=== PATIENT | female | born 1950 | race Caucasian/White ===

== ENCOUNTER 2024-10-12 12:55 | Emergency (ER) | payer OTHER, SELFPAY ==
--- NOTE | 2024-10-12 13:16 | ED.GENMED ---
ED Provider Triage
<Ashutosh Paniagua PA-C - Last Filed: 10/12/24 13:19>
-
Patient seen by provider in Triage?: Seen in Triage
Attestation: A medical screening examination has been initiated by a qualified medical provider. Based on the assessment performed at this time, it has been determined that an emergent medical condition may exist and the patient has been informed
that further medical evaluation and possible additional diagnostic testing may be needed.
HPI: 74-year-old female presenting to the emergency department for evaluation of left-sided chest discomfort and paresthesia to the left arm that started around 7 AM. Patient currently in rehab due to a recently fractured right shoulder. Patient
currently chest pain-free. Mildly hypertensive in triage but otherwise stable. Cardiac workup initiated.
GENERAL: Alert , in no apparent distress
EYE: No visual abnormalities.
NECK: Trachea midline
ENT: No visible abnormalities.
LUNGS: No acute respiratory distress
NEUROLOGICAL: Alert and oriented
SKIN: Skin intact. No visible changes.
MUSCULOSKELETAL: Moving extremities normally
PSYCH: Normal and appropriate interaction.
This is a medical evaluation conducted in person to initiate diagnostic evaluation and provide initial therapeutics. Please see further documentation by the treating clinician.
History of Present Illness
<Ashutosh Paniagua PA-C - Last Filed: 10/12/24 13:19>
General
Chief Complaint: Chest Pain
Time Seen by Provider: 10/12/24 20:37
<Stephanie Mcdonald NP - Last Filed: 10/12/24 23:46>
General
Source: patient
Exam Limitations: none
Nursing documentation reviewed up to this point in time: agreed with
History of Present Illness
History of Present Illness:
Patient to ED for eval of left sided chest pain. SHe is currently at a rehab after falling and breaking her right humeral head 2 weeks ago. States this AM she developed sharp left sided chest pain, and tingling to her left shoulder. No associated
n/v/diaphoresis. No SOB. No aggravating or alleviating factors. Pain resolved within a few minutes. Advised by staff to come to ED for eval. Brought to ED via EMS. No further episodes of chest pain
Past History
<Stephanie Mcdonald NP - Last Filed: 10/12/24 23:46>
Past History
ED Past Medical History: GERD, HTN and Hypercholesterolemia
Social History
Tobacco: Former smoker (quit x 3 years)
Review of Systems
<Stephanie Mcdonald WELT WHEELER - Last Filed: 10/12/24 23:46>
Review of Systems
Allergies reviewed?: Yes
All Other Systems: ROS reviewed and negative except as documented in HPI and ROS
Constitutional: Reports no symptoms
EENT: Reports no symptoms
Respiratory: Reports no symptoms
Cardiac: Reports chest pain
ABD/GI: Reports no symptoms
Musculoskeletal: Reports joint pain (fx right humeral head s/p fall 2 weeks ago)
Skin: Reports no symptoms
Neurological: Reports no symptoms
Psychiatric: Reports no symptoms
Phy Exam
<Stephanie Mcdonald NP - Last Filed: 10/12/24 23:46>
General Physical Exam
General Presentation: well appearing and no apparent distress
General age: appears stated age
General Skin: warm and dry
General Habitus: normal
General Mental: alert
Cardiovascular Exam
Cardiovascular Exam: regular rate/rhythm and no edema
Pulmonary Exam
Pulmonary Exam: lungs clear, no respiratory distress and chest non tender
Musculoskeletal Exam
Musculoskeletal Exam: neuro vasc intact and other (RUE in shoulder immobilizer. Neurovasc. intact)
Skin Exam
Skin Exam: normal color, warm/dry and no rash
Psychiatric Exam
Psychiatric Exam: normal mood/affect
Scores
<Stephanie Mcdonald NP - Last Filed: 10/12/24 23:46>
Heart Score for Chest Pain Patients
STEMI patient?: No
History: Slightly or Non-Suspicious
ECG: Normal
Age: >/= 65 years
Risk Factors: >/= 3 Risk Factors or History of CAD
Troponin: </= Normal Limit
Heart Score for Chest Pain Patients: 4
Heart Score Risk: 20.3% MACE over next 6 weeks
<Thomas Colvin DO - Last Filed: 10/13/24 03:42>
Heart Score for Chest Pain Patients
Heart Score for Chest Pain Patients: 4
Heart Score Risk: 20.3% MACE over next 6 weeks
Course
<Ashutsoh Paniagua PA-C - Last Filed: 10/12/24 13:19>
Orders/Labs/Results
Orders:
Orders
10/12/24 12:56
ECG [Electrocardiogram (*1)] Urgent
Reason for Study: Chest Pain
10/12/24 12:57
EKG- Treatment ONCE
10/12/24 13:25
Complete Blood Count/With Diff Urgent
Comprehensive Metabolic Panel Urgent
Troponin I Urgent
10/12/24 19:12
Troponin I Urgent
10/12/24 20:51
CT Chest PE Study Urgent
Comment:
Reason For Exam: Left chest pain, hypoxemia
Abnormal Lab Results
10/12/24
13:25
RBC 4.13 L 10^6/uL
(4.20-5.40)
MCH 31.2 H pg
(27.0-31.0)
Absolute Lymphs (auto) 1.0 L 10^3/uL
(1.2-3.4)
Lymphocytes % 18.3 L %
(20.5-51.1)
Sodium 133 L mmol/L
(135-145)
Chloride 97 L mmol/L
(98-107)
Glucose 105 H mg/dl
(70-99)
10/12/24 13:25
10/12/24 13:25
Vital Signs
Initial and Last Documented VS:
Initial Vital Signs
Temp Pulse Resp BP Pulse Ox
98.7 F 86 18 135/100 94
10/12/24 13:17 10/12/24 13:17 10/12/24 13:17 10/12/24 13:17 10/12/24 13:17
Last Documented Vital Signs
Temp Pulse Resp BP Pulse Ox
98.8 F 83 20 134/98 91
10/12/24 19:15 10/13/24 00:05 10/13/24 00:05 10/13/24 00:15 10/13/24 00:00
<Stephanie Mcdonald NP - Last Filed: 10/12/24 23:46>
Orders/Labs/Results
Orders:
Orders
10/12/24 12:56
ECG [Electrocardiogram (*1)] Urgent
Reason for Study: Chest Pain
10/12/24 12:57
EKG- Treatment ONCE
10/12/24 13:25
Complete Blood Count/With Diff Urgent
Comprehensive Metabolic Panel Urgent
Troponin I Urgent
10/12/24 19:12
Troponin I Urgent
10/12/24 20:51
CT Chest PE Study Urgent
Comment:
Reason For Exam: Left chest pain, hypoxemia
Abnormal Lab Results
10/12/24
13:25
RBC 4.13 L 10^6/uL
(4.20-5.40)
MCH 31.2 H pg
(27.0-31.0)
Absolute Lymphs (auto) 1.0 L 10^3/uL
(1.2-3.4)
Lymphocytes % 18.3 L %
(20.5-51.1)
Sodium 133 L mmol/L
(135-145)
Chloride 97 L mmol/L
(98-107)
Glucose 105 H mg/dl
(70-99)
10/12/24 13:25
10/12/24 13:25
Vital Signs
Initial and Last Documented VS:
Initial Vital Signs
Temp Pulse Resp BP Pulse Ox
98.7 F 86 18 135/100 94
10/12/24 13:17 10/12/24 13:17 10/12/24 13:17 10/12/24 13:17 10/12/24 13:17
Last Documented Vital Signs
Temp Pulse Resp BP Pulse Ox
98.8 F 83 20 134/98 91
10/12/24 19:15 10/13/24 00:05 10/13/24 00:05 10/13/24 00:15 10/13/24 00:00
<Thomas Colvin, DO - Last Filed: 10/13/24 03:42>
Orders/Labs/Results
Orders:
Orders
10/12/24 12:56
ECG [Electrocardiogram (*1)] Urgent
Reason for Study: Chest Pain
10/12/24 12:57
EKG- Treatment ONCE
10/12/24 13:25
Complete Blood Count/With Diff Urgent
Comprehensive Metabolic Panel Urgent
Troponin I Urgent
10/12/24 19:12
Troponin I Urgent
10/12/24 20:51
CT Chest PE Study Urgent
Comment:
Reason For Exam: Left chest pain, hypoxemia
Abnormal Lab Results
10/12/24
13:25
RBC 4.13 L 10^6/uL
(4.20-5.40)
MCH 31.2 H pg
(27.0-31.0)
Absolute Lymphs (auto) 1.0 L 10^3/uL
(1.2-3.4)
Lymphocytes % 18.3 L %
(20.5-51.1)
Sodium 133 L mmol/L
(135-145)
Chloride 97 L mmol/L
(98-107)
Glucose 105 H mg/dl
(70-99)
10/12/24 13:25
10/12/24 13:25
Vital Signs
Initial and Last Documented VS:
Initial Vital Signs
Temp Pulse Resp BP Pulse Ox
98.7 F 86 18 135/100 94
10/12/24 13:17 10/12/24 13:17 10/12/24 13:17 10/12/24 13:17 10/12/24 13:17
Last Documented Vital Signs
Temp Pulse Resp BP Pulse Ox
98.8 F 83 20 134/98 91
10/12/24 19:15 10/13/24 00:05 10/13/24 00:05 10/13/24 00:15 10/13/24 00:00
<Stephanie Mcdonald NP - Last Filed: 10/12/24 23:46>
*Radiology
Radiology exam reviewed: radiology read reviewed
*Pulse Oximetry
Patient hypoxic: no
*Critical Care Note
Total Time (30-74mins, 75-104mins- exclusive of procedures): Not Applicable
<Stephanie Mcdonald NP - Last Filed: 10/12/24 23:46>
Update Note
Update Note:
Patient to ED s/p chest pain episode this AM. Resolved on own prior to arrival in ED. SHe has remained asymptomatic. Labs, EKG reviewed. Pulse ox holding at 92-93 RA. She denies any SOB. No known history of lung disease. Quit smoking 3 years
ago. Denies cough. Chest CT obtained to r/o PE. Report findings discussed with Dr. Lopez. Reviewed findings of CT wtih pt. NO evidence of PE. Mildly dilated thoracic aorta. Fatty density right margin of left atrium that surrounds SVC and
narrows the caliber of the SVC - fatty infiltrate vs lipoma. SHe follows with hydrogen treater Dr. Palacio from [place] and will call in the AM to schedule a follow up appt. SHe is discharged back to rehab tonight. Given insstructions on s/s to
return to ED and she is agreeable to plan.
ED Attending Note
<Ashutosh Paniagua PA-C - Last Filed: 10/12/24 13:19>
-
Portions of this chart may have been created with voice recognition software.� Occasional wrong word or��sound alike� substitutions may have occurred due to the inherent limitations of voice recognition software.
Discharge Plan
Departure
Patient Disposition: Home (Routine Discharge)
Date of Disposition: 10/12/24
Time of Disposition: 23:29
Patient with high blood pressure during this ER visit?: No
Condition: Good
Covid-19: Not Applicable
Discharge Problem:
Chest pain
Instructions: Chest Pain NON-[facility] Welfare Specialist Follow Up
Referrals:
Ashish Yoon MD [Family Provider] -
Activity Restrictions/Additional Instructions:
Call your cardiologists in the AM to schedule a follow up appointment. Return to the emergency department immediately for any return of/changes in/worsening of your symptoms.
Interventions
Interventions:
*Risk Screen - Suicide Last Done: 10/12/24 13:17
*General Assessment Last Done: 10/12/24 13:17
*Neglect/Abuse Screening Last Done: 10/12/24 13:17
ED- Fall Risk Assessment Last Done: 10/12/24 20:16
*ED COVID-19 Vaccine History Last Done: 10/12/24 13:17
*Nursing Disposition Last Done: 10/13/24 00:31
ED- Cardiac Assessment Last Done: 10/12/24 20:16
Discharge Date and Time
Discharge Date/Time: 10/13/24 00:32
Print Language: PAKISTANI
[2024-10-12 13:17] VITALS: BP 135/100
[2024-10-12 13:48] LABS: % Basophils 0.5 % (0-2); % Immature Granulocytes 0.2 % (0-0.5); % Lymphocytes 18.3 % (20.5-51.1); % Monocytes 8.5 % (1.7-9.3); % Neutrophils 70.5 % (42.2-75.2); Absolute Eosinophils 0.1 10^3/uL (0-0.7); Absolute Monocytes 0.5 10^3/uL (0.1-0.6); Absolute Neutrophils 3.9 10^3/uL (1.4-6.5); Hematocrit 38.4 % (37.0-47.0); Hemoglobin 12.9 g/dL (12.0-16.0); Mean Corp Hgb Conc. 33.6 g/dL (33.0-37.0); Mean Corpuscular Hgb 31.2 pg (27.0-31.0); Mean Platelet Volume 9.3 fL (7.4-10.4); Nucleated Red Blood Cells % 0 %; Platelet Count 318 10^3/uL (130-400); Red Blood Cell Count 4.13 10^6/uL (4.20-5.40); Red Cell Dist. Width 13.1 % (11.5-14.5); White Blood Cell Count 5.5 10^3/uL (4.8-10.8)
[2024-10-12 14:02] LABS: ALT (SGPT) 15 U/L (0-35); AST (SGOT) 17 U/L (14-36); Albumin 4.1 g/dl (3.5-5.0); Alkaline Phosphatase 89 U/L (38-126); Blood Urea Nitrogen 14 mg/dl (7-17); Calcium 9.7 mg/dl (8.4-10.2); Carbon Dioxide 26 mmol/L (22-30); Chloride 97 mmol/L (98-107); Glucose 105 mg/dl (70-99); Potassium 4.3 mmol/L (3.5-5.1); Sodium 133 mmol/L (135-145); Total Bilirubin 1.2 mg/dl (0.2-1.3); Total Protein 6.5 g/dl (6.3-8.2); eGFR > 60.00
[2024-10-12 14:10] LABS: Troponin I < 0.012 ng/ml
[2024-10-12 16:07] VITALS: BP 132/99
[2024-10-12 19:15] VITALS: BP 125/95
[2024-10-12 19:48] LABS: Troponin I < 0.012 ng/ml
[2024-10-12 22:57] VITALS: BP 133/96
[2024-10-12 23:00] VITALS: BP 127/99
[2024-10-13 00:15] VITALS: BP 134/98
== END 2024-10-13 00:32 ==
LOC: EMR 12:55
PROVIDERS: Emergency Medicine; Physician Assistant Medical; EMERGENCY PHYSICIAN Emergency Medicine; FAMILY PHYSICIAN Family Medicine
DX: R07.89 Other chest pain (principal); I10 Essential (primary) hypertension; E78.00 Pure hypercholesterolemia, unspecified; K21.9 Gastro-esophageal reflux disease without esophagitis; Z87.891 Personal history of nicotine dependence; Z87.81 Personal history of (healed) traumatic fracture
CPT/HCPCS: 99284; 71275; 80053; 84484; 85025; 93005; Q9967